=== PATIENT | female | born 1985 | race Caucasian/White ===

== ENCOUNTER 2016-11-20 18:11 | Inpatient (IN) | payer OTHER ==
[~2016-11-20] VITALS: Ht 162.6 cm; Wt 76.7 kg
[2016-11-20] MEDS ORDERED: Lactated Ringer's 1,000 ML IV PRN (19:19)
[2016-11-20] MEDS ORDERED: Oxytocin 10 Unit/mL Inj IM PRN (19:20)
[2016-11-20] MEDS ORDERED: Hemorrhage Kit, Post Partum XX ONE (19:20)
[2016-11-20] MEDS ORDERED: Methylergonovine 0.2 mg/mL Inj IM PRN (19:20)
[2016-11-20] MEDS ORDERED: Sodium Chloride LOK Flush 10 mL Syringe IVFLUSH PRN (19:20)
[2016-11-20] MEDS ORDERED: Oxytocin 30 Units/500 mL LR 30 UNITS in IV Premix 1 EACH IV PRN (19:20)
[2016-11-20] MEDS ORDERED: Carboprost 250 mCg/mL Inj IM PRN (19:20)
[2016-11-20 21:20] LABS: Mean Corpuscular Hemoglobin 31.5 pg (27.0-35.0); Mean Corpuscular Volume 89.3 fL (81-100)
[2016-11-20] MEDS ORDERED: Lactated Ringer's 500 ML IV ONE (22:41)
[2016-11-20] MEDS ORDERED: Lactated Ringer's 1,000 ML IV SCH (22:41)
--- NOTE | 2016-11-20 22:43 | PCM.HPANE ---
Patient Data Surgeon Admitting Provider:Boaz Costello MD Attending Provider:Boaz Costello MD Primary Care Physician:Anibal Herrera MD Other Provider:Andie Villatoro Anesthesia Reason for Visit Term Labor TERM LABOR Ht/WT & BMI Body Mass Index Allergies Coded Allergies: peanut (Unverified Allergy, Unknown, 11/20/16) Diabetes History Hx Diabetes?: No Medications Hypertension Medication: No Home Meds Incl Beta Carl: No History Hx of Heart Problems?: No Hx of Respiratory Problem?: No Stop/Bang Risk Assessment Category Category 1A: Patient has history of documented sleep apnea, and HAS NOT received any narcotic, sedative or anesthesia administration during this stay. Category 1B: Patient has history of documented sleep apnea, and HAS received any narcotic , sedative or anesthesia administration during this stay Category 2: Patient has SUSPECTED Obstructive Sleep Apnea, and HAS received any narcotic , sedative or anesthesia administration during this stay. Category 3: Patient has SUSPECTED Obstructive Sleep Apnea and HAS NOT received narcotic, sedative or anesthesia administration during this stay. Category 4: Outpatient in Procedural Areas with known sleep apnea or who screen positive for High Risk via the STOP/BANG questionnaire. Exam Exam General Appearance: Alert, Oriented X3, Cooperative, Moderate Distress (with contractions) HEENT/AIRWAY: MP 1 Lungs: Normal Air Movement Heart: Exam Unremarkable Meds/Labs/Diagnostics Labs Test 11/20/16 21:00 White Blood Count 15.6th/mm3 (3.8-10.1) Red Blood Count 4.41mil/mm3 (3.90-5.20) Hemoglobin 13.9g/dL (12.0-15.6) Hematocrit 39.4% (35.0-46.0) Mean Corpuscular Volume 89.3fL (81-100) Mean Corpuscular Hemoglobin 31.5pg (27.0-35.0) Mean Corpuscular Hemoglobin Concent 35.3% (32.0-37.0) Red Cell Distribution Width 12.4% (12.3-15.4) Platelet Count 279bil/L (150-400) Plan Impression Patient chart reviewed, patient interviewed and anesthestic plan with risks, benefits, and alternatives discussed, and informed consent obtained. ASA Physical Status: ASA1 Normal Healthy Anesthetic Plan: Epidural Bene/Risks/Altern/Consents: Yes HP Complete Prior to Induction: Yes Carlitos Renee MD Nov 20, 2016 22:43
[2016-11-20] MEDS ORDERED: Ondansetron 2 mg/mL 2 mL Inj IVPUSH PRN (22:45)
[2016-11-20] MEDS ORDERED: Atropine 1 mg/10 mL (Code) Syringe IVPUSH PRN (22:45)
[2016-11-20] MEDS ORDERED: EPHEDrine Sulfate 50 mg/mL Inj IVPUSH PRN (22:45)
[2016-11-20] MEDS ORDERED: fentaNYL 2 mCg/mL-Bupiv 0.125% 100 ML EPIDURAL SCH (22:45)
[2016-11-20] MEDS ORDERED: fentaNYL-PF 50 mCg/mL 2 mL Inj IVPUSH PRN (22:45)
[2016-11-20] MEDS ORDERED: Phenylephrine/NS-PF 100 mCg/mL 5 mL Syringe IVPUSH PRN (22:45)
[2016-11-21] MEDS ORDERED: Sodium Chloride LOK Flush 10 mL Syringe IVFLUSH SCH (00:30)
[2016-11-21] MEDS ORDERED: Benzocaine (Dermoplast) 20% 60 Gm Spray TOPICAL PRN (01:25)
[2016-11-21] MEDS ORDERED: Oxytocin 10 Unit/mL Inj IM PRN (01:25)
[2016-11-21] MEDS ORDERED: Carboprost 250 mCg/mL Inj IM PRN (01:25)
[2016-11-21] MEDS ORDERED: Oxytocin 30 Units/500 mL LR 30 UNITS in IV Premix 1 EACH IV PRN (01:25)
[2016-11-21] MEDS ORDERED: Measles-Mumps-Rubella Vaccine 0.5 mL Inj SUBQ ONE (01:25)
[2016-11-21] MEDS ORDERED: HYDROcodone-APAP 5-325 mg Tablet PO PRN (01:25)
[2016-11-21] MEDS ORDERED: TdaP Vaccine 0.5 mL Inj IM ONE (01:25)
[2016-11-21] MEDS ORDERED: Methylergonovine 0.2 mg/mL Inj IM PRN (01:25)
[2016-11-21] MEDS ORDERED: Witch Hazel-Glycerin Pads TOPICAL PRN (01:25)
[2016-11-21] MEDS ORDERED: Influenza (Adult) Vaccine 0.5 mL Syringe IM ONE (01:25)
[2016-11-21] MEDS ORDERED: Lactated Ringer's 1,000 ML IV SCH (01:25)
[2016-11-21] MEDS ORDERED: LANOlin HPA 7 Gm Ointment TOPICAL PRN (01:25)
[2016-11-21] MEDS ORDERED: Hemorrhage Kit, Post Partum XX ONE (01:25)
--- NOTE | 2016-11-21 10:42 | PCM.DIOB ---
Obstetrical Disch Instruction Dates of Hospitalization Date of Hospital Admission Nov 20, 2016 at 19:02 Providers Admitting Physician: Boaz Costello MD Primary Care Physician: Anibal Herrera MD Attending Physician: Boaz Costello MD Discharge Diagnosis Problems: (1) Status: Acute ICD Code: Z33.1 Diet Discharge Diet: No restrictions Activity Discharge Activity-General: Pelvic Rest for 6 weeks Dressing and Incisional Care Hygiene: May shower, Perineal care, Sitz bath, Dermoplast spray, Witch Sherri pads, Ice Follow Up Plan Follow-up appointment: Weeks (Follow up in 6 weeks for check up with Dr. Dominguez.) Call your provider for: Fever or Chills, Shortness of breath, Heavy vaginal bleeding, Red painful breasts Carlos Dominguez MD Nov 21, 2016 10:42
[2016-11-21] MEDS ORDERED: DOCU-41 PO (10:44)
[2016-11-21] MEDS ORDERED: IBUP-1827 PO (10:44)
[2016-11-21 14:34] VITALS: BP 119/67; PULSE 60; RESP 14
--- NOTE | 2016-11-22 00:15 | PROG NOTE ---
[address] [address] PROGRESS NOTE PATIENT: MARLON CHO : 1985 MR#: [id number] ADMIT: 11/20/2016 JOB ID: [id number] [facility] NOTE: DATE: 11/20/2016 SUBJECTIVE: The patient was admitted to [facility] at approximately 38 weeks along, having been followed prenatally per Dr. Boaz Costello, with spontaneous rupture of membranes, clear fluid. Uterine contractions were beginning. Labor then progressed relatively rapidly and she was then found to be at 8 cm dilatation, and then complete dilatation with rapid descent of the head with pushing. heart tracing was acceptable throughout. Once , head then delivered, followed by reduction of moderately loose nuchal cord over the shoulders as shoulders body and extremities delivered. Baby was active, crying and vigorous, and handed to mother for bonding. Nurse and I dried and stimulated the baby. There was 2 minute delay and then umbilical cord was clamped and cut, and cord blood was then obtained for routine studies. Placenta with membranes were then spontaneously expelled, intact. The uterus was massaged and intravenous Pitocin infusion provided, and then bleeding slowed remarkably. Blood loss was in the 200 cc range. Betadine solution was used to cleanse the vulvovaginal region. There was very shallow and short right-sided inner labial/periurethral laceration easily closed with skin edge approximation using interrupted stitches of 3-0 chromic suture. Small to medium size midline perineal laceration was also closed with 3-0 chromic suture, and deep and then more superficial layers. Hemostasis was noted to be complete and there was no hematoma formation. The procedure was then complete. Instrument, needle, and sponge counts were all found to be correct. It certainly is anticipated that mother and baby will do very well during the timeframe.
--- NOTE | 2016-11-22 00:23 | HP ---
[address] [address] HISTORY AND PHYSICAL PATIENT: MARLON CHO : 1985 MR#: [id number] ADMIT: 11/20/2016 JOB ID: [id number] [facility] NOTE: DATE: 11/20/2016 SUBJECTIVE: The patient is a 31-year-old, , AB0, woman, followed prenatally by Dr. Boaz Costello, see record for details. course been relatively uncomplicated. Note due date of December 05, 2016, placing the patient at approximately 37-6/7 weeks along on date of admission. Note negative GBS status, rubella immune status, Rh positive. The patient spontaneously ruptured membranes at approximately 1600 hours on November 20, 2016, clear fluid. She came to the Center and was admitted. Note some uterine contractions gradually becoming closer. In summary, then, the patient was admitted to [facility] on November 20, 2016, for expectant management, anticipating vaginal delivery following spontaneous rupture of membranes and early onset of uterine contractions. PHYSICAL EXAMINATION: On admission, the last weight in the office 168.6 pounds. Last blood pressure in the office 120/80. Neck: No thyromegaly. Lungs: Clear to auscultation and percussion. Heart: Regular in rate and rhythm. Abdomen: Nontender. Positive heartbeat. Fundal height size consistent with known gestational age. Pelvic examination: Cervix fingertip, 70%, effaced, positive ROM Plus. DIAGNOSTIC DATA: Admission hemoglobin 13.9, hematocrit 39.4, platelets 279. IMPRESSION: 1. A 37-6/7 week on admission. 2. Spontaneous rupture of membranes. 3. Early uterine contractions. 4. Negative Group-B strep. 5. Rubella immune. 6. Rh positive. 7. History of eating disorder (anorexia/bulimia). 8. PEANUT allergy (nausea, hives). PLAN: The patient has been admitted to [facility] on November 20, 2016, with spontaneous rupture of membranes at nearly 38 weeks of gestation, and early uterine contractions, anticipating vaginal delivery.
--- NOTE | 2016-11-22 00:28 | DIS ---
[address] [address] DISCHARGE SUMMARY PATIENT: MARLON CHO : 1985 MR#: [id number] ADMIT: 11/20/2016 JOB ID: [id number] DIS: 11/21/2016 DISCHARGE DIAGNOSIS: Approximately 38 week , delivered. PROCEDURES PERFORMED DURING HOSPITALIZATION: 1. Vaginal delivery. 2. Laceration repair. HOSPITAL COURSE: The patient was admitted to [facility] on November 20, 2016, on which day she underwent procedures as described. During the timeframe, the patient has done well, has been stable, vitals and temperatures, has ambulated and voided, bleeding and pain have been fine, she has had no leg pain or shortness of breath, and she has handled the baby well. She is able to be discharged on the first day, with decision per hand surgeon to be made regarding the baby's discharge. DISCHARGE PROGRAM: The patient will call p.r.n., yet otherwise will follow up at around [address] Costello for checkup. She will observe pelvic rest for six weeks. DISCHARGE MEDICATIONS: Include ibuprofen, and Colace, prescriptions written. She will also use vitamin daily, to continue while nursing.
== END 2016-11-21 15:40 | disposition home or self-care (01) | DRG 775 ==
LOC: FBCO 18:11 → FBC 19:02
PROVIDERS: ADMIT Family Medicine; ATTEND Family Medicine
PROC: 10E0XZZ Delivery of Products of Conception, External Approach (ICD-10-PCS; principal; 2016-11-20)
PROC: 0KQM0ZZ Repair Perineum Muscle, Open Approach (ICD-10-PCS; 2016-11-20)
PROC: 0UQMXZZ Repair Vulva, External Approach (ICD-10-PCS; 2016-11-20)
PROC: 3E0234Z Introduction of Serum, Toxoid and Vaccine into Muscle, Percutaneous Approach (ICD-10-PCS; 2016-11-21)
PROC: 3E0234Z Introduction of Serum, Toxoid and Vaccine into Muscle, Percutaneous Approach (ICD-10-PCS; 2016-11-21)
PROC: 3E0234Z Introduction of Serum, Toxoid and Vaccine into Muscle, Percutaneous Approach (ICD-10-PCS; 2016-11-21)
PROC: 3E0334Z Introduction of Serum, Toxoid and Vaccine into Peripheral Vein, Percutaneous Approach (ICD-10-PCS; 2016-11-21)
DX: O70.1 Second degree perineal laceration during delivery (principal); Z37.0 Single live birth; O36.0930 Maternal care for other rhesus isoimmunization, third trimester, not applicable or unspecified; O71.82 Other specified trauma to perineum and vulva; O69.89X0 Labor and delivery complicated by other cord complications, not applicable or unspecified; Z3A.38 38 weeks gestation of pregnancy; Z23 Encounter for immunization